=== PATIENT | female | born 2000 | race Caucasian/White ===

== ENCOUNTER → 2021-11-29 | Outpatient (CLI) | payer BC ==
--- NOTE | 2021-11-29 16:19 | Diagnostic Imaging Report ---
INDICATION: Abdominal pain and cramping. FINDINGS: Supine and upright abdominal radiographs show a normal gas pattern and normal fecal load. No suspicious calcification. IMPRESSION: Unremarkable abdominal radiographic series. Dictated by: Dictated on workstation # [id number]
== END ==
LOC: RAD FS 10:50
PROVIDERS: ATTEND Nurse Practitioner Family
DX: R10.9 Unspecified abdominal pain (principal); R25.2 Cramp and spasm; R11.0 Nausea
CPT/HCPCS: 74019

== ENCOUNTER → 2022-08-31 | Outpatient (CLI) | payer BC ==
--- NOTE | 2022-08-31 15:22 | Diagnostic Imaging Report ---
INDICATION: survey. TECHNIQUE: Multiple Real-time grayscale images were obtained over the gravid uterus. COMPARISON: None. FINDINGS: There is a single live fetus in a transverse presentation with the head to the maternal right. The heart rate was recorded at 150 BPM. The placenta is posterior. There appears to be a complete placenta previa. The amniotic fluid index is 13.5 cm. The cervical length is 4.4 cm. The survey shows kidneys, bladder, and stomach to be unremarkable. The brain is unremarkable. There is a four-chamber heart. There is a three-vessel cord with normal insertion. The spine is unremarkable. Biometrical measurements are as follows: Biparietal 5.10 cm, age 21 weeks 4 days. Head circumference 18.46 cm, age 20 weeks 6 days. Abdominal circumference 16.66 cm, age 21 weeks 5 days. Femur length 3.59 cm, age 21 weeks 3 days. Sonographic estimate age: 21 weeks 3 days. Sonographic estimated date of delivery: 01/08/2023. Estimated Weight: 426 gm (+/- 63 gm). LMP percentile: 93%. heart rate: 150 beats per minute. number: 1 of 1. IMPRESSION: Single live IUP of 21 weeks 3 days gestational age. The estimated date of confinement sonographically is 01/08/2023. Note is made of complete placenta previa. Dictated by: Dictated on workstation # [id number]
== END ==
LOC: RAD 12:47
PROVIDERS: ATTEND Nurse Practitioner Women's Health
DX: Z34.92 Encounter for supervision of normal pregnancy, unspecified, second trimester (principal); Z3A.21 21 weeks gestation of pregnancy
CPT/HCPCS: 76805

== ENCOUNTER → 2022-12-07 | Outpatient (CLI) | payer BC | LOC: LABNPT 11:24 | PROVIDERS: ATTEND Nurse Practitioner Women's Health | DX: O13.9 Gestational [pregnancy-induced] hypertension without significant proteinuria, unspecified trimester (principal); Z3A.00 Weeks of gestation of pregnancy not specified | CPT/HCPCS: 82570; 84156 ==

== ENCOUNTER → 2022-12-28 | Outpatient (CLI) | payer BC ==
[~2022-12-28] MED LIST: ACHD5005 PO; DOCU100C37 PO; FERR-74 PO; IBUP-844 PO; PREN-102 PO; SIME80TA16 PO
== END ==
LOC: LABNPT 11:37
PROVIDERS: ATTEND Obstetrics & Gynecology
DX: O13.9 Gestational [pregnancy-induced] hypertension without significant proteinuria, unspecified trimester (principal); Z3A.00 Weeks of gestation of pregnancy not specified
CPT/HCPCS: 82570; 84156

== ENCOUNTER 2022-12-30 20:16 | Inpatient (IN) | payer BC ==
[~2022-12-30] VITALS: Ht 167 cm; Wt 75.6 kg
[2022-12-30] VITALS (12 sets, daily range): BP systolic 118–154; BP diastolic 33–94
[2022-12-30 20:56] LABS: BACTERIA,URINE LARGE /HPF; BILIRUBIN,URINE 1+ (NEGATIVE); CLARITY,URINE CLOUDY; COLOR,URINE YELLOW; GLUCOSE, URINE (UA) NEGATIVE (NEGATIVE); KETONES,URINE 2+ (NEGATIVE); LEUKOCYTE ESTERASE ,URINE NEGATIVE (NEGATIVE); NITRITE,URINE NEGATIVE (NEGATIVE); PROTEIN,URINE 3+ (NEGATIVE)
[2022-12-30 21:26] LABS: BASOPHILS % (AUTO) 0 % (0-10); EOSINOPHILS # (AUTO) 0.1 10^3/uL (0.0-0.3); EOSINOPHILS % (AUTO) 1 % (0-10); HEMATOCRIT 35 % (35-52); HEMOGLOBIN 12.1 g/dL (11.5-16.0); LYMPHOCYTES # (AUTO) 0.9 10^3/uL (1.0-4.0); LYMPHOCYTES % (AUTO) 7 % (12-44); MEAN CORPUSCULAR HEMOGLOBIN 31 pg (25-34); MEAN CORPUSCULAR HGB CONC 35 g/dL (32-36); MEAN CORPUSCULAR VOLUME 89 fL (80-99); MEAN PLATELET VOLUME 12.2 fL (9.0-12.2); MONOCYTES # (AUTO) 0.9 10^3/uL (0.0-1.0); MONOCYTES % (AUTO) 7 % (0-12); NEUTROPHILS # (AUTO) 11.1 10^3/uL (1.8-7.8); NEUTROPHILS % (AUTO) 85 % (42-75); PLATELET COUNT 91 10^3/uL (130-400)
[2022-12-30 21:44] LABS: ALBUMIN 2.9 GM/DL (3.2-4.5)
[2022-12-30 21:45] LABS: POTASSIUM 3.7 MMOL/L (3.6-5.0)
[2022-12-30 21:46] LABS: CALCIUM 8.2 MG/DL (8.5-10.1)
[2022-12-30 21:47] LABS: TOTAL PROTEIN 5.7 GM/DL (6.4-8.2)
[2022-12-30 21:49] LABS: BILIRUBIN,TOTAL 0.7 MG/DL (0.1-1.0)
[2022-12-30 21:51] LABS: CREATININE SERUM 0.65 MG/DL (0.60-1.30)
[2022-12-30 22:03] LABS: EOSINOPHILS % (MANUAL) 4 %; LYMPHOCYTES % (MANUAL) 10 %; MONOCYTES % (MANUAL) 3 %; NEUTROPHILS % (MANUAL) 83 %; RBC MORPH NORMAL
[2022-12-30] MEDS ORDERED: LACTATED RINGERS 1,000 ML 500 ML IV PRN (22:15)
[2022-12-30] MEDS ORDERED: MAGNESIUM 4 GM/100 ML IVPB 100 ML IV SCH (22:15)
[2022-12-30] MEDS ORDERED: CALCIUM GLUCONATE 10% 4.65 MEQ/10 ML VIAL IV SCH (22:15)
[2022-12-30] MEDS ORDERED: MINERAL OIL 30 ML UDC TOP PRN (22:15)
[2022-12-30] MEDS ORDERED: D5 LR 1,000 ML IV SOLN 1,000 ML IV ONE (22:24)
[2022-12-30] MEDS: D5 LR 1,000 ML IV SOLN 1,000 ML IV SCH (22:51)
[2022-12-30] MEDS: MAGNESIUM SULFATE DRIP 500 ML IV SCH (23:18)
[2022-12-30] MEDS ORDERED: LACTATED RINGERS 1,000 ML 1,000 ML IV ONE (23:30)
--- NOTE | 2022-12-30 23:47 | History & Physical-OB ---
OB - Chief Complaint & HPI Date/Time Date of Admission: Date of Admission: Dec 30, 2022 at 21:57 Date seen by a Provider: Dec 30, 2022 Time Seen by a Provider: 23:00 Chief Complaint/History OB-Reason for Admission/Chief: Obstetrical Complication (Preeclampsia with severe features) Hx : 1 Hx Para: 0 Expected Date of Delivery: Jan 15, 2023 Gestational Age in Weeks: 37 Gestational Age in Days: 5 Other reason for admission: Preeclampsia with severe features 37 5/7 weeks Latent labor Allergies and Home Medications Allergies Coded Allergies: No Known Drug Allergies (Unverified , 12/30/22) Patient Home Medication List Home Medication List Reviewed: Yes OB - History Hx of Present Care: Yes Obstetrical Complications: Pre-eclampsia Medical Complications: None Other Concerns: HPI: Patient is a EDC 01/15/23 based on a 10 week US CRL done 06/15/22 giving her an EDC of 01/15/23 making her 37 5/7 weeks today admitted with diagnosis of preeclampsia with severe features based on mildly elevated BP, urine P/C ratio of 0.42 from 12/28/22 and elevated transaminases (AST/ALT 123/88) and low PLT (91K) today. Patient seen in the office on Saturday12/28/22 at which time her CMP was normal and PLT 114K. Patient was scheduled to come back to clinic tomorrow AM. She presented to L&D this evening due to contractions q3-4 minutes mild- moderate in intensity and mildly elevated BP at home. Labs as above. Patient admitted for delivery. Cervical exam by me at 2308 hours 2/70/- 3/VTX/BOWI/posterior/moderately soft. Category I FHR tracing with baseline 140 bpm, moderate variability, +accels, no decels. GBS Negative. Patient ROS negative. PNC: Marginal previa early in resolved PMH: Neg PSH: Neg SHx: Negative for smoking/ETOH/RX abuse/STI/Genital HSV Meds: PNV NKDA LABS: PREECLAMPTIC LABS ABOVE PAP 2021 WNL MBT A POS PNAS NEG VDRL NR HBSAG NR HIV NR GC/CT NEG X 2 RUBELLA IMMUNE 1 HR GLUCOLA 125 GBS NEG MSAFP TESTING NEGATIVE PER PATIENT 2ND TRIMESTER US REPORT NOT AVAILABLE...PATIENT STATES NORMAL REVIEW OF SYSTEMS NEGATIVE FOR HEENT, CV, RESPIRATORY, GI/, MS/NM, SKIN, ENDOCRINE Obstetrical History Hx : 1 Hx Para: 0 Hx Total # of Abortions (Spona: 0 Patient Past Medical History See HPI above. Social History/Family History Alcohol Use: Denies Use Recreational Drug Use: No Immunizations Influenza Vaccine Up-to-Date: No; Not Current OB - Admission Exam Physical Exam Vitals: Vital Signs 12/30/22 12/30/22 20:44 21:55 Temp 37.0 Pulse 75 Resp 18 B/P (MAP) 153/94 Pulse Ox 99 O2 Delivery Room Air HEENT: Eyes non-injected Heart: Rhythm Normal Lungs: Clear Abdomen: Soft Extremities: Normal Reflexes: Normal Membranes: Intact Heart Rate: 140's Accelerations: Accelerations Present Decelerations: No Decelerations Mcfp Variability: Average (6-25) Contractions on Admission: < 5 Minutes Apart Labs Laboratory Tests Test 12/30/22 20:39 12/30/22 21:19 12/30/22 22:14 Range/Units Urine Color YELLOW Urine Clarity CLOUDY Urine pH 6.0 5-9 Urine Specific [place] >=1.030 1.016-1.022 Urine Protein 3+ H NEGATIVE Urine Glucose (UA) NEGATIVE NEGATIVE Urine Ketones 2+ H NEGATIVE Urine Nitrite NEGATIVE NEGATIVE Urine Bilirubin 1+ H NEGATIVE Urine Urobilinogen 1.0 < = 1.0 MG/DL Urine Leukocyte Esterase NEGATIVE NEGATIVE Urine RBC (Auto) 3+ H NEGATIVE Urine RBC 10-25 H /HPF Urine WBC 5-10 H /HPF Urine Squamous Epithelial Cells 10-25 H /HPF Urine Crystals NONE /LPF Urine Bacteria LARGE H /HPF Urine Casts NONE /LPF Urine Mucus LARGE H /LPF Urine Culture Indicated NO White Blood Count 13.0 H 4.3-11.0 10^3/uL Red Blood Count 3.90 3.80-5.11 10^6/uL Hemoglobin 12.1 11.5-16.0 g/dL Hematocrit 35 35-52 % Mean Corpuscular Volume 89 80-99 fL Mean Corpuscular Hemoglobin 31 25-34 pg Mean Corpuscular Hemoglobin Concent 35 32-36 g/dL Red Cell Distribution Width 14.9 H 10.0-14.5 % Platelet Count 91 L 130-400 10^3/uL Mean Platelet Volume 12.2 9.0-12.2 fL Immature Granulocyte % (Auto) 1 % Neutrophils (%) (Auto) 85 H 42-75 % Lymphocytes (%) (Auto) 7 L 12-44 % Monocytes (%) (Auto) 7 0-12 % Eosinophils (%) (Auto) 1 0-10 % Basophils (%) (Auto) 0 0-10 % Neutrophils # (Auto) 11.1 H 1.8-7.8 10^3/uL Lymphocytes # (Auto) 0.9 L 1.0-4.0 10^3/uL Monocytes # (Auto) 0.9 0.0-1.0 10^3/uL Eosinophils # (Auto) 0.1 0.0-0.3 10^3/uL Basophils # (Auto) 0.0 0.0-0.1 10^3/uL Immature Granulocyte # (Auto) 0.1 0.0-0.1 10^3/uL Neutrophils % (Manual) 83 % Lymphocytes % (Manual) 10 % Monocytes % (Manual) 3 % Eosinophils % (Manual) 4 % Platelet Estimate CONSISTENT W/ COUNT Percent Immature Platelet Fraction 12.5 H 0.0-7.6 % Blood Morphology Comment NORMAL Sodium Level 136 135-145 MMOL/L Potassium Level 3.7 3.6-5.0 MMOL/L Chloride Level 107 98-107 MMOL/L Carbon Dioxide Level 20 L 21-32 MMOL/L Anion Gap 9 5-14 MMOL/L Blood Urea Nitrogen 9 7-18 MG/DL Creatinine 0.65 0.60-1.30 MG/DL Estimat Glomerular Filtration Rate 126 BUN/Creatinine Ratio 14 Glucose Level 83 70-105 MG/DL Calcium Level 8.2 L 8.5-10.1 MG/DL Corrected Calcium 9.1 8.5-10.1 MG/DL Total Bilirubin 0.7 0.1-1.0 MG/DL Aspartate Amino Transf (AST/SGOT) 123 H 5-34 U/L Alanine Aminotransferase (ALT/SGPT) 88 H 0-55 U/L Alkaline Phosphatase 119 40-136 U/L Total Protein 5.7 L 6.4-8.2 GM/DL Albumin 2.9 L 3.2-4.5 GM/DL Syphilis Total Antibody Negative Negative OB - Assessment/Plan/Diagnosis Assessment Assessment: other (37 5/7, SEVERE PREECLAMPSIA, LATENT OR EARLY LABOR ADMIT FOR DELIVERY) Admission Dx 37 5/7 WEEKS PREECLAMPSIA WITH SEVERE FEATURES EARLY LABOR Admission Status: Inpatient Order (span 2 midnights) Reason for Inpatient Admission: Patient admitted for indicated medical delivery for preeclampsia with severe features in early labor. 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 # Patient requesting epidural...Anethesia service OK with epidural at PLT of 91K...getting IV bolus for epidural now # Plan is to SROM after epidural placed observe for an hour and if needed, then start Pitocin augmentation if needed. # Repeat CBC and CMP at 0500 # BP in normal to mildly elevated at this time...IV anti-hypertensive meds prn severe range BPs # GBS Negative # Category I FHR tracing with contractions q 3 minutes... Leopolds 7 lbs 6 onz.... adequate pelvis # Patient and spouse understand condition and voiced understanding...no questions or concerns at this time...Patient's RN in room during patient encounter. # Will sign out patient to Dr. Johnson, patient's regular OB provider, when he comes sound engineer audio control at 0700. CARMEL GARCIA DO Dec 30, 2022 23:47
[2022-12-30] MEDS ORDERED: fentaNYL INJECTION 100 MCG/2 ML VIAL ONE (23:48)
[2022-12-30] MEDS ORDERED: BUPIVACAINE 0.25% 10 ML VIAL ONE (23:48)
[2022-12-30] MEDS ORDERED: fentaNYL 2 mcg/ml BUPIVA 0.125 100 ML ONE (23:49)
[2022-12-31] VITALS (61 sets, daily range): BP systolic 98–155; BP diastolic 56–103
[2022-12-31] MEDS ORDERED: fentaNYL 2 mcg/ml BUPIVA 0.125 100 ML EPI SCH (00:30)
[2022-12-31] MEDS ORDERED: ONDANSETRON INJECTION 4 MG/2 ML (SDV) IV PRN (00:30)
[2022-12-31] MEDS ORDERED: fentaNYL INJECTION 100 MCG/2 ML VIAL INJ ONE (00:30)
[2022-12-31] MEDS ORDERED: NALOXONE 0.4 MG/ML 1 ML VIAL IV PRN ×2 (00:30→07:45)
[2022-12-31] MEDS ORDERED: LACTATED RINGERS 1,000 ML 1,000 ML IV ONE ×2 (00:30)
[2022-12-31] MEDS ORDERED: PREN-102 PO (00:57)
--- NOTE | 2022-12-31 01:49 | Labor Progress Note ---
Labor Progress Note Labor Progress Note Date Seen by Provider: Dec 31, 2022 Time Seen by Provider: 01:20 Subjective: Pt denies complaints. Functional epidural in place, patient has nogueira. BP 116/73. Cervical exam at 0122 hours at time of AROM clear (below) Objective: Cervix 2/70/-3... AROM clear Assessment/Plan: AROM clear at 0122 IUPC placed...unable to get IUPC zero at this time. Going to external monitor to determine frequency of contractions. Prior to epidural contractions were q3-5 minutes. will wait 1 hour after AROM, as discussed and agreed upon by patient, then initiate Pitocin augmentation to maintain regular uterine contractions q2-3 minutes. Repeat CBC and CMP at 0500 hours. Patient without questions or concerns voiced. Vitals - Labs Vital Signs - I&O Vital Signs Date Time Temp Pulse Resp B/P (MAP) Pulse Ox O2 Delivery O2 Flow Rate FiO2 12/31/22 00:40 81 16 131/77 (95) 98 Room Air 12/31/22 00:35 93 16 127/76 (93) 98 Room Air 12/31/22 00:30 106 16 126/77 (93) 98 Room Air 12/31/22 00:26 127 16 128/80 (96) 97 Room Air 12/31/22 00:22 116 16 129/84 (99) 97 Room Air 12/31/22 00:20 91 16 129/83 (98) 97 Room Air 12/31/22 00:15 97 16 126/83 (97) 97 Room Air 12/31/22 00:04 94 16 134/84 (101) 97 Room Air 12/30/22 23:49 81 16 130/68 (88) 98 Room Air 12/30/22 23:19 83 16 118/69 (85) 99 Room Air 12/30/22 23:04 86 16 128/67 (87) 97 Room Air 12/30/22 22:05 88 16 154/91 (112) 99 Room Air 12/30/22 21:55 37.0 75 18 99 Room Air 12/30/22 21:50 75 16 142/84 (103) 99 Room Air 12/30/22 21:45 85 16 137/89 (105) 97 Room Air 12/30/22 21:20 73 16 131/33 (65) 99 Room Air 12/30/22 21:05 75 16 139/93 (108) 98 Room Air 12/30/22 20:50 71 16 137/91 (106) 98 Room Air 12/30/22 20:44 36.5 78 18 153/94 97 Room Air 12/30/22 20:35 36.5 76 16 153/94 (113) 97 Room Air I & O 12/31/22 06:59 Intake Total 600 ml Balance 600 ml Labs Laboratory Tests 12/30/22 20:39: Urine Color YELLOW, Urine Clarity CLOUDY, Urine pH 6.0, Urine Specific [place] >=1.030, Urine Protein 3+H, Urine Glucose (UA) NEGATIVE, Urine Ketones 2+H, Urine Nitrite NEGATIVE, Urine Bilirubin 1+H, Urine Urobilinogen 1.0, Urine Leukocyte Esterase NEGATIVE, Urine RBC (Auto) 3+H, Urine RBC 10-25H, Urine WBC 5-10H, Urine Squamous Epithelial Cells 10-25H, Urine Crystals NONE, Urine Bacteria LARGEH, Urine Casts NONE, Urine Mucus LARGEH, Urine Culture Indicated N O 12/30/22 21:19: White Blood Count 13.0H, Red Blood Count 3.90, Hemoglobin 12.1, Hematocrit 35, Mean Corpuscular Volume 89, Mean Corpuscular Hemoglobin 31, Mean Corpuscular Hemoglobin Concent 35, Red Cell Distribution Width 14.9H, Platelet Count 91L, Mean Platelet Volume 12.2, Immature Granulocyte % (Auto) 1, Neutrophils (%) (Auto) 85H, Lymphocytes (%) (Auto) 7L, Monocytes (%) (Auto) 7, Eosinophils (%) (Auto) 1, Basophils (%) (Auto) 0, Neutrophils # (Auto) 11.1H, Lymphocytes # (Auto) 0.9L, Monocytes # (Auto) 0.9, Eosinophils # (Auto) 0.1, Basophils # (Auto) 0.0, Immature Granulocyte # (Auto) 0.1, Neutrophils % (Manual) 83, Lymphocytes % (Manual) 10, Monocytes % (Manual) 3, Eosinophils % (Manual) 4, Platelet Estimate CONSISTENT W/ COUNT, Percent Immature Platelet Fraction 12.5H, Blood Morphology Comment NORMAL, Sodium Level 136, Potassium Level 3.7, Chloride Level 107, Carbon Dioxide Level 20L, Anion Gap 9, Blood Urea Nitrogen 9, Creatinine 0.65, Estimat Glomerular Filtration Rate 126, BUN/Creatinine Ratio 14, Glucose Level 83, Calcium Level 8.2L, Corrected Calcium 9.1, Total Bilirubin 0.7, Aspartate Amino Transf (AST/SGOT) 123H, Alanine Aminotransferase (ALT/SGPT) 88H, Alkaline Phosphatase 119, Total Protein 5.7L, Albumin 2.9L 12/30/22 22:14: Syphilis Total Antibody Negative CARMEL GARCIA DO Dec 31, 2022 01:49
[2022-12-31] MEDS ORDERED: OXYTOCIN DRIP PRE-MIX 500 ML IV ONE (02:48)
[2022-12-31] MEDS ORDERED: OXYTOCIN DRIP PRE-MIX 500 ML IV SCH (03:00)
[2022-12-31] MEDS ORDERED: LACTATED RINGERS IV PRN (04:45)
[2022-12-31 05:37] LABS: BASOPHILS % (AUTO) 0 % (0-10); HEMOGLOBIN 10.9 g/dL (11.5-16.0)
[2022-12-31 05:39] LABS: EOSINOPHILS # (AUTO) 0.1 10^3/uL (0.0-0.3); EOSINOPHILS % (AUTO) 1 % (0-10); HEMATOCRIT 32 % (35-52); LYMPHOCYTES # (AUTO) 0.7 10^3/uL (1.0-4.0); LYMPHOCYTES % (AUTO) 7 % (12-44); MEAN CORPUSCULAR HEMOGLOBIN 31 pg (25-34); MEAN CORPUSCULAR HGB CONC 34 g/dL (32-36); MEAN CORPUSCULAR VOLUME 90 fL (80-99); MEAN PLATELET VOLUME 12.1 fL (9.0-12.2); MONOCYTES # (AUTO) 0.6 10^3/uL (0.0-1.0); MONOCYTES % (AUTO) 6 % (0-12); NEUTROPHILS # (AUTO) 8.6 10^3/uL (1.8-7.8); NEUTROPHILS % (AUTO) 86 % (42-75)
[2022-12-31 05:59] LABS: ALBUMIN 2.6 GM/DL (3.2-4.5); BILIRUBIN,TOTAL 0.6 MG/DL (0.1-1.0); CALCIUM 7.6 MG/DL (8.5-10.1); CREATININE SERUM 0.6 MG/DL (0.60-1.30); POTASSIUM 3.7 MMOL/L (3.6-5.0)
[2022-12-31] MEDS ORDERED: CATHETER FLUSH 10 ML SYR IV SCH (06:00)
[2022-12-31 06:46] LABS: PLATELET COUNT 65 10^3/uL (130-400)
--- NOTE | 2022-12-31 07:14 | Labor Progress Note ---
Labor Progress Note Labor Progress Note Date Seen by Provider: Dec 31, 2022 Time Seen by Provider: 06:10 Subjective: Patient comfortable in bed. On 6 mIU Pitocin with contractions q 3 minutes. Cervical exam at approx. 0610 is 4/80/-2 by my exam. FHR tracing unchanged from admission still Category I FHR tracing, baseline 145, moderate variability, +accels, no decels. Urine output borderline 1t 30 mL/HR believed in part to be due to dehydration (urine concentrated on admission by SG) for which patient has received two small boluses of LR of 250 ML each in addition to 500 ML prior to epidural. PLT at around 0500 is 65K with AST/ALT now 158/111. We have one unit of platelets here at hospital if needed to transfuse platelets. Objective: As above. Assessment/Plan: # @ 37 5/7 weeks with preeclampsia with severe features, entering active labor with Pitocin augmentation and epidural. # PLT now 65K with AST/ALT 158/111 # BP normal range, on IV Magnesium Sulfate 1 gm per hour # Following UO hourly and giving small IV boluses to maintain 30 ML or more. # Case discussed with patient regarding risks of bleeding with PLT continuing to drop, risks with attempted vaginal delivery vs now vs later. Her OB Dr. Johnson is on duty at 0700 (he and I spoke at around 0652 about this case). Patient would like to hear what Dr. Johnson would recommend. He is now restoration officer for the patient and told me he will come in to speak with her in about 15- 30 minutes. I will inform patient about this. This patient has been signed out to Dr. Johnson who has now assumed care. OB nurses are aware. Vitals - Labs Vital Signs - I&O Vital Signs Date Time Temp Pulse Resp B/P (MAP) Pulse Ox O2 Delivery O2 Flow Rate FiO2 12/31/22 06:15 78 16 124/80 (95) 96 Room Air 12/31/22 06:00 73 16 120/74 (89) 97 Room Air 12/31/22 05:45 71 16 116/74 (88) 95 Room Air 12/31/22 05:30 70 16 114/75 (88) 96 Room Air 12/31/22 05:15 70 16 112/67 (82) 95 Room Air 12/31/22 05:00 74 16 115/65 (82) 95 Room Air 12/31/22 04:45 79 16 98/57 (71) 96 Room Air 12/31/22 04:30 77 16 101/56 (71) 96 Room Air 12/31/22 04:15 80 16 115/65 (82) 96 Room Air 12/31/22 04:00 81 16 114/67 (83) 96 Room Air 12/31/22 03:45 79 16 114/68 (83) 96 Room Air 12/31/22 03:30 85 16 118/69 (85) 97 Room Air 12/31/22 03:15 83 16 118/70 (86) 98 Room Air 12/31/22 03:00 95 16 111/64 (80) 96 Room Air 12/31/22 02:45 101 16 109/63 (78) 95 Room Air 12/31/22 02:30 96 16 109/64 (79) 96 Room Air 12/31/22 02:15 101 16 110/68 (82) 96 Room Air 12/31/22 02:00 83 16 112/69 (83) 97 Room Air 12/31/22 01:45 92 16 108/70 (83) 96 Room Air 12/31/22 01:30 83 16 116/73 (87) 97 Room Air 12/31/22 01:15 93 16 119/75 (90) 96 Room Air 12/31/22 01:00 90 16 127/76 (93) 96 Room Air 12/31/22 00:40 81 16 131/77 (95) 98 Room Air 12/31/22 00:35 93 16 127/76 (93) 98 Room Air 12/31/22 00:30 106 16 126/77 (93) 98 Room Air 12/31/22 00:26 127 16 128/80 (96) 97 Room Air 12/31/22 00:22 116 16 129/84 (99) 97 Room Air 12/31/22 00:20 91 16 129/83 (98) 97 Room Air 12/31/22 00:15 97 16 126/83 (97) 97 Room Air 12/31/22 00:04 94 16 134/84 (101) 97 Room Air 12/30/22 23:49 81 16 130/68 (88) 98 Room Air 12/30/22 23:19 83 16 118/69 (85) 99 Room Air 12/30/22 23:04 86 16 128/67 (87) 97 Room Air 12/30/22 22:05 88 16 154/91 (112) 99 Room Air 12/30/22 21:55 37.0 75 18 99 Room Air 12/30/22 21:50 75 16 142/84 (103) 99 Room Air 12/30/22 21:45 85 16 137/89 (105) 97 Room Air 12/30/22 21:20 73 16 131/33 (65) 99 Room Air 12/30/22 21:05 75 16 139/93 (108) 98 Room Air 12/30/22 20:50 71 16 137/91 (106) 98 Room Air 12/30/22 20:44 36.5 78 18 153/94 97 Room Air 12/30/22 20:35 36.5 76 16 153/94 (113) 97 Room Air I & O 12/31/22 07:00 Intake Total 600 ml Balance 600 ml Labs Laboratory Tests 12/30/22 20:39: Urine Color YELLOW, Urine Clarity CLOUDY, Urine pH 6.0, Urine Specific [place] >=1.030, Urine Protein 3+H, Urine Glucose (UA) NEGATIVE, Urine Ketones 2+H, Urine Nitrite NEGATIVE, Urine Bilirubin 1+H, Urine Urobilinogen 1.0, Urine Leukocyte Esterase NEGATIVE, Urine RBC (Auto) 3+H, Urine RBC 10-25H, Urine WBC 5-10H, Urine Squamous Epithelial Cells 10-25H, Urine Crystals NONE, Urine Bacteria LARGEH, Urine Casts NONE, Urine Mucus LARGEH, Urine Culture Indicated NO 12/30/22 21:19: White Blood Count 13.0H, Red Blood Count 3.90, Hemoglobin 12.1, Hematocrit 35, Mean Corpuscular Volume 89, Mean Corpuscular Hemoglobin 31, Mean Corpuscular Hemoglobin Concent 35, Red Cell Distribution Width 14.9H, Platelet Count 91L, Mean Platelet Volume 12.2, Immature Granulocyte % (Auto) 1, Neutrophils (%) (Auto) 85H, Lymphocytes (%) (Auto) 7L, Monocytes (%) (Auto) 7, Eosinophils (%) (Auto) 1, Basophils (%) (Auto) 0, Neutrophils # (Auto) 11.1H, Lymphocytes # (Auto) 0.9L, Monocytes # (Auto) 0.9, Eosinophils # (Auto) 0.1, Basophils # (Auto) 0.0, Immature Granulocyte # (Auto) 0.1, Neutrophils % (Manual) 83, Lymphocytes % (Manual) 10, Monocytes % (Manual) 3, Eosinophils % (Manual) 4, Platelet Estimate CONSISTENT W/ COUNT, Percent Immature Platelet Fraction 12.5H, Blood Morphology Comment NORMAL, Sodium Level 136, Potassium Level 3.7, Chloride Level 107, Carbon Dioxide Level 20L, Anion Gap 9, Blood Urea Nitrogen 9, Creatinine 0.65, Estimat Glomerular Filtration Rate 126, BUN/Creatinine Ratio 14, Glucose Level 83, Calcium Level 8.2L, Corrected Calcium 9.1, Total Bilirubin 0.7, Aspartate Amino Transf (AST/SGOT) 123H, Alanine Aminotransferase (ALT/SGPT) 88H, Alkaline Phosphatase 119, Total Protein 5.7L, Albumin 2.9L 12/30/22 22:14: Syphilis Total Antibody Negative 12/31/22 05:27: White Blood Count 10.0, Red Blood Count 3.54L, Hemoglobin 10.9L, Hematocrit 32L, Mean Corpuscular Volume 90, Mean Corpuscular Hemoglobin 31, Mean Corpuscular Hemoglobin Concent 34, Red Cell Distribution Width 15.2H, Platelet Count 65L, Mean Platelet Volume 12.1, Immature Granulocyte % (Auto) 0, Neutrophils (%) (Auto) 86H, Lymphocytes (%) (Auto) 7L, Monocytes (%) (Auto) 6, Eosinophils (%) (Auto) 1, Basophils (%) (Auto) 0, Neutrophils # (Auto) 8.6H, Lymphocytes # (Auto) 0.7L, Monocytes # (Auto) 0.6, Eosinophils # (Auto) 0.1, Basophils # (Auto) 0.0, Immature Granulocyte # (Auto) 0.0, Percent Immature Platelet Fraction 10.5H, Sodium Level 134L, Potassium Level 3.7, Chloride Level 106, Carbon Dioxide Level 20L, Anion Gap 8, Blood Urea Nitrogen 8, Creatinine 0.60, Estimat Glomerular Filtration Rate 128, BUN/Creatinine Ratio 13, Glucose Level 211H, Calcium Level 7.6L, Corrected Calcium 8.7, Total Bilirubin 0.6, Aspartate Amino Transf (AST/SGOT) 158H, Alanine Aminotransferase (ALT/SGPT) 111H, Alkaline Phosphatase 105, Total Protein 5.0L, Albumin 2.6L CARMEL GARCIA DO Dec 31, 2022 07:14
[2022-12-31] MEDS ORDERED: fentaNYL INJECTION 100 MCG/2 ML VIAL ONE ×2 (07:19→08:57)
[2022-12-31] MEDS ORDERED: METOCLOPRAMIDE INJ 10 MG/2 ML ONE (07:25)
[2022-12-31] MEDS ORDERED: CITRIC ACID/SODIUM CITRATE ORAL SOLN 30 ML ONE (07:25)
[2022-12-31] MEDS ORDERED: FAMOTIDINE INJ 20MG/2ML VIAL ONE (07:26)
[2022-12-31] MEDS ORDERED: ceFAZolin INJECTION 2,000 MG in NS (IVPB) 50 ML 50 ML IV ONE ×2 (07:30→11:00)
[2022-12-31] MEDS ORDERED: LIDOCAINE PF 2% 5 ML VIAL ONE (07:30)
[2022-12-31] MEDS ORDERED: dexAMETHasone INJ 4 MG/ML SDV IM SCH (07:30)
[2022-12-31] MEDS ORDERED: BUPIVACAINE 0.5% 30 ML VIAL ONE (07:30)
[2022-12-31] MEDS ORDERED: dexAMETHasone INJ 10 MG/ML 1 ML VIAL IM SCH (07:30)
[2022-12-31] MEDS ORDERED: AZITHROMYCIN INJECTION 500 MG in NS (IVPB) 250 ML 250 ML IV ONE ×2 (07:30→11:00)
[2022-12-31] MEDS ORDERED: NS (IVPB) 50 ML 50 ML ONE (07:35)
[2022-12-31] MEDS ORDERED: ceFAZolin INJECTION 2,000 MG ONE (07:35)
[2022-12-31] MEDS ORDERED: AZITHROMYCIN INJECTION 500 MG VIAL ONE (07:35)
[2022-12-31] MEDS ORDERED: NS (IVPB) 250 ML 250 ML ONE (07:36)
--- NOTE | 2022-12-31 07:38 | Progress Note ---
Standard Progress Note Progress Notes/Assess & Plan Date Seen by a Provider: Dec 31, 2022 Time Seen by a Provider: 07:33 Progress/Assessment & Plan Patient situation called to me at sign out by Dr. Reynoso, please see my operative report for complete details to situation. Patient found in Severe PreE HELLP and remote from delivery with plts in the 60ks. Discussed with patient concerns with being remote from delivery and plts falling and only having one unit of platelets inhouse. Risk of surgery reviewed, all questions answered, and consent obtained to go forward with emergent PLTCS. TEVIN DOMINGUEZ DO Dec 31, 2022 07:38
[2022-12-31] MEDS ORDERED: Tetanus/Diphtheria/Pertussis (Acell) ADULT Vaccine 0.5 ML IM SCH (07:45)
[2022-12-31] MEDS ORDERED: MEASLES, MUMPS, RUBELLA VACCINE (MMR) SC SCH (07:45)
[2022-12-31] MEDS ORDERED: ONDANSETRON INJECTION 4 MG/2 ML (SDV) IVP PRN (07:45)
[2022-12-31] MEDS ORDERED: HYDROmorphone INJECTION 2 MG/ML VIAL IV PRN (07:45)
[2022-12-31] MEDS ORDERED: CARBOPROST 250 MCG/ML 1 ML AMPULE IM ONE (07:56)
[2022-12-31] MEDS ORDERED: MIDAZOLAM INJ 2 MG/2 ML VIAL ONE (08:06)
[2022-12-31] MEDS ORDERED: ONDANSETRON INJECTION 4 MG/2 ML (SDV) ONE (08:18)
[2022-12-31] MEDS ORDERED: OXYTOCIN DRIP PRE-MIX 1,000 ML IV ONE (08:37)
[2022-12-31 08:43] LABS: BASOPHILS % (AUTO) 0 % (0-10); EOSINOPHILS # (AUTO) 0.1 10^3/uL (0.0-0.3); EOSINOPHILS % (AUTO) 1 % (0-10); HEMATOCRIT 32 % (35-52); HEMOGLOBIN 10.9 g/dL (11.5-16.0); LYMPHOCYTES # (AUTO) 0.5 10^3/uL (1.0-4.0); LYMPHOCYTES % (AUTO) 5 % (12-44); MEAN CORPUSCULAR HEMOGLOBIN 31 pg (25-34); MEAN CORPUSCULAR HGB CONC 35 g/dL (32-36); MEAN CORPUSCULAR VOLUME 89 fL (80-99); MEAN PLATELET VOLUME 11.7 fL (9.0-12.2); MONOCYTES # (AUTO) 0.6 10^3/uL (0.0-1.0); MONOCYTES % (AUTO) 5 % (0-12); NEUTROPHILS # (AUTO) 10.3 10^3/uL (1.8-7.8); NEUTROPHILS % (AUTO) 88 % (42-75); WHITE BLOOD COUNT 11.6 10^3/uL (4.3-11.0)
[2022-12-31 08:46] LABS: PLATELET COUNT 64 10^3/uL (130-400)
[2022-12-31] MEDS ORDERED: fentaNYL INJECTION 100 MCG/2 ML VIAL IVP ONE (09:00)
[2022-12-31 09:05] LABS: ALBUMIN 2.5 GM/DL (3.2-4.5); BILIRUBIN,TOTAL 0.5 MG/DL (0.1-1.0); CALCIUM 7.1 MG/DL (8.5-10.1); CREATININE SERUM 0.57 MG/DL (0.60-1.30); POTASSIUM 3.5 MMOL/L (3.6-5.0); TOTAL PROTEIN 4.7 GM/DL (6.4-8.2)
[2022-12-31] MEDS: dexAMETHasone INJ 10 MG/ML 1 ML VIAL IM SCH ×2 (09:05→21:08)
[2022-12-31] MEDS: OXYTOCIN DRIP PRE-MIX 500 ML IV SCH ×2 (09:33→12:57)
[2022-12-31] MEDS ORDERED: TRANEXAMIC ACID 100 MG/ML 10 ML INJECTION IV ONE (10:35)
[2022-12-31 12:09] LABS: BASOPHILS % (AUTO) 0 % (0-10); EOSINOPHILS % (AUTO) 0 % (0-10); HEMATOCRIT 31 % (35-52); HEMOGLOBIN 10.9 g/dL (11.5-16.0); LYMPHOCYTES # (AUTO) 0.4 10^3/uL (1.0-4.0); LYMPHOCYTES % (AUTO) 2 % (12-44); MEAN CORPUSCULAR HEMOGLOBIN 31 pg (25-34); MEAN CORPUSCULAR HGB CONC 35 g/dL (32-36); MEAN CORPUSCULAR VOLUME 89 fL (80-99); MEAN PLATELET VOLUME 12.2 fL (9.0-12.2); MONOCYTES # (AUTO) 0.6 10^3/uL (0.0-1.0); MONOCYTES % (AUTO) 3 % (0-12); NEUTROPHILS # (AUTO) 17.1 10^3/uL (1.8-7.8); NEUTROPHILS % (AUTO) 94 % (42-75); WHITE BLOOD COUNT 18.2 10^3/uL (4.3-11.0)
[2022-12-31 12:10] LABS: PLATELET COUNT 80 10^3/uL (130-400)
[2022-12-31 12:15] LABS: ALBUMIN 2.5 GM/DL (3.2-4.5); POTASSIUM 4.2 MMOL/L (3.6-5.0)
[2022-12-31 12:17] LABS: TOTAL PROTEIN 4.7 GM/DL (6.4-8.2)
[2022-12-31 12:19] LABS: INR 1.1 (0.8-1.4); PROTHROMBIN TIME PATIENT 14.3 SEC (12.2-14.7)
[2022-12-31 12:21] LABS: CREATININE SERUM 0.57 MG/DL (0.60-1.30)
[2022-12-31 12:24] LABS: URIC ACID 4.5 MG/DL (2.6-7.2)
[2022-12-31 12:29] LABS: FIBRIN DEGRADATION PRODUCTS 6.93 UG/ML (0.00-0.49)
[2022-12-31 12:46] LABS: BAND NEUTROPHILS 2 %; LYMPHOCYTES % (MANUAL) 3 %; MONOCYTES % (MANUAL) 2 %; NEUTROPHILS % (MANUAL) 93 %
[2022-12-31 12:49] LABS: ANISOCYTOSIS SLIGHT
[2022-12-31] MEDS: METOCLOPRAMIDE 10 MG TABLET PO SCH ×2 (12:57→20:04)
--- NOTE | 2022-12-31 14:13 | OPERATIVE REPORT ---
DATE OF SERVICE: 12/30/2022 POSTOPERATIVE DIAGNOSES: 1. A 22-year-old at 38 weeks' gestation. 2. Severe preeclampsia. 3. HELLP syndrome. 4. Remote from delivery. POSTOPERATIVE DIAGNOSES: 1. A 22-year-old at 38 weeks' gestation. 2. Severe preeclampsia. 3. HELLP syndrome. 4. Remote from delivery. PROCEDURE: Primary low-transverse section. SURGEON: Robb Dominguez DO SCABBLER: Dr. Steffany Chappell, who was necessary for manipulation and retraction throughout the procedure. ANESTHESIA: Epidural, which was bolused. ESTIMATED BLOOD LOSS: 1000 mL. URINE OUTPUT: 50 mL clear at the end of the procedure. FLUIDS: 1100 mL lactated Ringer's solution. FINDINGS: A live male weighing 7 pounds 14 ounces, Apgars of 8 and 9. Grossly normal appearing uterus, bilateral fallopian tubes and ovaries. SPECIMEN SENT: Placenta. INDICATIONS FOR PROCEDURE: This 22-year-old female was for early labor signs last night. After her admission, it was noted on her labs that her platelets were low. She had an elevated protein/creatinine ratio on Saturday afternoon in the office and was planned for delivery this coming week, so she was kept and admitted overnight by the covering physician, Dr. Reynoso. At admission, her platelet values were found to be 90,000 and she had slightly elevated liver enzymes. She was started on magnesium infusion for seizure prophylaxis and underlying diagnosis of preeclampsia. Her blood pressures remained fairly well-controlled, no severe elevations, however. Repeating her platelets this morning at 5:30, we had a drop down to 65,000. Due to concerns of this continuing to fall, worsening signs of severe preeclampsia, we discussed with the patient proceeding with urgent delivery. Her liver enzymes are also coming up and elevating as well. I discussed with the patient. She had progressed to 4 cm, however, still had quite a bit of labor to go through. Due to this, we discussed going through primary . Risks of procedure were discussed with the patient in detail including risk of bleeding, infection, damage to surrounding structures including but not limited to bowel, bladder, ureter, kidneys, possible need for re-operation, postoperative complications that may occur, recovery timeframe, risk from anesthesia and even . We also discussed the risk of ongoing management of labor and she was agreeable to proceed with . After all of her questions were answered, consent was obtained. The patient was taken to the operating room. OPERATIVE DESCRIPTION IN DETAIL: Once in the operating room, epidural analgesia was bolused and found to be adequate. She was placed in the supine position with leftward tilt, prepped and draped in normal sterile fashion. A timeout was performed. Anesthesia was tested. I then make a Pfannenstiel skin incision with a knife and carried to the underlying fascia using Bovie cautery. The fascial incision was extended laterally using Bovie cautery. The superior aspect of fascial incision was then grasped with Zaria clamps, tented up and dissected off the underlying rectus muscles. The inferior aspect of the fascial incision was then grasped with Zaria clamps, tented up and dissected off the underlying rectus muscles. Rectus muscles were dissected down the midline, which exposed the peritoneum, which I entered bluntly using blunt traction. An Vamshi ring retractor was placed in the peritoneal incision, which offers excellent lateral sidewall retraction. I identified the lower uterine segment, found to be thinned out. I made a low transverse incision to the vesicouterine peritoneum and bluntly dissected off the lower uterine segment, creating a bladder flap. I then proceeded my myotomy until membranes were visualized, at which point, continued the incision laterally and superiorly using blunt traction. Amniotomy was performed. In the process of doing this, clear fluid was noted. was found in vertex presentation. With gentle fundal pressure, the 's head was elevated up to the incision and was delivered through the incision. The nares and oropharynx were bulb suctioned. Anterior and posterior shoulders were delivered. The was brought to the operative field where cords were clamped and cut and was handed off to waiting nurses in attendance. Cord blood was collected. Three-vessel cord intact placenta delivered spontaneously thereafter. IV Pitocin is initiated to facilitate uterine contraction. The uterus was then exteriorized and cleared of all endometrial clots and debris. There is still some degree of bogginess noted. We have Anesthesia administer tranexamic acid 1 gram IV infusion. We also have him administer Hemabate 250 mcg IM. Uterine tone improved during the closure of the uterus. I closed the uterine hysterotomy using 0 Vicryl suture in a running locked fashion. Second layer of imbricating 0 Monocryl was placed. Excellent hemostasis was noted after doing this and there is a good degree of uterine tone appreciated on palpation at that point. I then placed the uterus back in the pelvis. Copiously irrigated the pelvis using normal saline. Once again, there was no active bleeding from any of my dissection planes. I placed Surgicel hemostatic agent over all my planes of dissection on the uterus. I removed the Vamshi retractor and then proceeded with closing the peritoneum using 3-0 Vicryl suture in a running fashion. Rectus muscles were reapproximated using 3-0 Vicryl suture in interrupted fashion. The fascia was reapproximated using 0 Vicryl suture in a running fashion. The subcutaneous tissue was reapproximated using 3-0 plain interrupted subcutaneous stitch and skin was reapproximated using 4-0 Monocryl running subcuticular. Dermabond was applied to incision, sterile dressing with adhesive white tape. The patient tolerated the procedure well and was taken to recovery in stable condition. Lap and sponge counts were correct at the end of the procedure. Instrument counts correct as well. Two grams of Ancef, 500 mg of azithromycin were given preoperatively for infection prophylaxis. Job ID: [id number] DocumentID: [id number] Dictated Date: 12/31/2022 08:43:19 Information Technology Officer Date: 12/31/2022 14:11:00 Dictated By: ROBB DOMINGUEZ DO
[2022-12-31] MEDS: MAGNESIUM SULFATE DRIP 500 ML IV SCH (16:23)
[2022-12-31] MEDS: DOCUSATE SODIUM 100 MG CAPSULE PO SCH ×2 (17:01→21:42)
[2022-12-31] MEDS ORDERED: METOCLOPRAMIDE INJ 10 MG/2 ML IV ONE (17:15)
[2022-12-31] MEDS ORDERED: FAMOTIDINE INJ 20MG/2ML VIAL IV ONE (17:15)
[2022-12-31] MEDS ORDERED: CITRIC ACID/SODIUM CITRATE ORAL SOLN 30 ML PO ONE (17:15)
[2022-12-31] MEDS ORDERED: CATHETER FLUSH 10 ML SYR IV PRN (17:15)
[2022-12-31] MEDS: D5 LR 1,000 ML IV SOLN 1,000 ML IV SCH ×2 (18:07→18:24)
[2022-12-31] MEDS: CATHETER FLUSH 10 ML SYR IV SCH ×2 (18:07→18:28)
[2022-12-31] MEDS: NS IV 500 ML 500 ML IV SCH (18:28)
[2022-12-31 20:29] LABS: EOSINOPHILS % (AUTO) 0 % (0-10); LYMPHOCYTES % (AUTO) 5 % (12-44)
[2022-12-31 20:31] LABS: BASOPHILS % (AUTO) 0 % (0-10); HEMATOCRIT 28 % (35-52); HEMOGLOBIN 9.8 g/dL (11.5-16.0); LYMPHOCYTES # (AUTO) 0.6 10^3/uL (1.0-4.0); MEAN CORPUSCULAR HEMOGLOBIN 31 pg (25-34); MEAN CORPUSCULAR HGB CONC 35 g/dL (32-36); MEAN CORPUSCULAR VOLUME 90 fL (80-99); MEAN PLATELET VOLUME 11.9 fL (9.0-12.2); MONOCYTES # (AUTO) 0.6 10^3/uL (0.0-1.0); MONOCYTES % (AUTO) 5 % (0-12); NEUTROPHILS # (AUTO) 12.1 10^3/uL (1.8-7.8); NEUTROPHILS % (AUTO) 90 % (42-75); PLATELET COUNT 68 10^3/uL (130-400); WHITE BLOOD COUNT 13.5 10^3/uL (4.3-11.0)
--- NOTE | 2022-12-31 20:44 | Progress Note ---
Standard Progress Note Progress Notes/Assess & Plan Date Seen by a Provider: Dec 31, 2022 Time Seen by a Provider: 20:15 Progress/Assessment & Plan RN requested OB to see pt BP has increased slightly and pt is c/o RUQ pain UO 117 last hour BP 154/97 H regular rhythm tachycardic Lungs Clear pt tachypneic ABD tender RUQ Uterus firm Lochia moderate EXT intact X4 SCDs on A/P OP day primary LTCS HELLP syndrome CBC CMP Mag level Continue to monitor and await lab results. LEONOR RON DO Dec 31, 2022 20:44
[2022-12-31 20:50] LABS: ALBUMIN 2.4 GM/DL (3.2-4.5); BILIRUBIN,TOTAL 0.7 MG/DL (0.1-1.0); CALCIUM 7.2 MG/DL (8.5-10.1); CREATININE SERUM 0.6 MG/DL (0.60-1.30); MAGNESIUM 4.6 MG/DL (1.6-2.4); POTASSIUM 4.3 MMOL/L (3.6-5.0); TOTAL PROTEIN 4.5 GM/DL (6.4-8.2)
[2022-12-31] MEDS ORDERED: hydrALAZINE INJECTION 20 MG/ML VIAL IV PRN (21:45)
[2023-01-01] VITALS (36 sets, daily range): BP systolic 107–144; BP diastolic 60–94
[2023-01-01] MEDS: METOCLOPRAMIDE 10 MG TABLET PO SCH ×2 (00:45→08:29)
[2023-01-01 06:18] LABS: BASOPHILS % (AUTO) 0 % (0-10); EOSINOPHILS % (AUTO) 0 % (0-10)
[2023-01-01 06:20] LABS: HEMATOCRIT 23 % (35-52); LYMPHOCYTES # (AUTO) 0.7 10^3/uL (1.0-4.0); LYMPHOCYTES % (AUTO) 5 % (12-44); MEAN CORPUSCULAR HEMOGLOBIN 31 pg (25-34); MEAN CORPUSCULAR HGB CONC 35 g/dL (32-36); MEAN CORPUSCULAR VOLUME 90 fL (80-99); MEAN PLATELET VOLUME 11.8 fL (9.0-12.2); MONOCYTES # (AUTO) 0.7 10^3/uL (0.0-1.0); MONOCYTES % (AUTO) 5 % (0-12); NEUTROPHILS # (AUTO) 12.9 10^3/uL (1.8-7.8); NEUTROPHILS % (AUTO) 89 % (42-75); PLATELET COUNT 46 10^3/uL (130-400); WHITE BLOOD COUNT 14.5 10^3/uL (4.3-11.0)
[2023-01-01 07:10] LABS: ALBUMIN 2.2 GM/DL (3.2-4.5); POTASSIUM 4.5 MMOL/L (3.6-5.0)
--- NOTE | 2023-01-01 07:10 | Postpartum Progress Note ---
Note Note Day # 1 Subjective: Patient is verbally expressing she feels much better this am. Still in bed with nogueira. Tolerating a clear diet without nausea or vomiting. Light lochia. Pain is well controlled with DEPLOYMENT TECHNICIAN/Dilaudid. MgSO4 running overnight, improvement in dieresis per RN. Objective: Physical Exam: General - Alert and oriented, no apparent distress Abdomen - Soft, appropriately tender to palpation, non-distended, fundus firm at umbilicus Extremities - +1 edema, negative Jonna's bilaterally, +1-2 clonus(improved from last night +3-4) Incision- c/d/i- no bleeding noted actively from wound, nor vaginally with gentle fundal massage Assessment: POD 1 PLTCS Severe Preeclampsia HELLP syndrome- w/severe Thrombocytopenia, elevated Liver enzymes Acute blood loss anemia Plan: Continue MgSO4 for now Repeat labs(CMP/Coags pending) Will consider plt transfusions Stat CT ordered to R/O internal hemorrhage Will consider dc/Mag and conversion to orals once stabilized Vitals - Labs Vital Signs - I&O Vital Signs Date Time Temp Pulse Resp B/P (MAP) Pulse Ox O2 Delivery O2 Flow Rate FiO2 01/01/23 06:00 87 18 114/80 (91) 01/01/23 06:00 18 01/01/23 06:00 87 18 114/80 (91) 97 Room Air 01/01/23 05:00 95 18 109/94 (99) 95 Room Air 01/01/23 05:00 95 18 109/94 (99) 01/01/23 04:00 105 20 109/66 (80) 96 Room Air 01/01/23 04:00 105 20 109/66 (80) 01/01/23 03:00 107 18 112/64 (80) 01/01/23 03:00 36.4 107 18 112/64 (80) 95 Room Air 01/01/23 02:00 99 22 109/64 (79) 95 Room Air 01/01/23 02:00 99 22 109/64 (79) 01/01/23 01:00 102 24 125/72 (89) 95 Room Air 01/01/23 01:00 102 24 125/72 (89) 01/01/23 00:00 101 28 122/82 (95) 01/01/23 00:00 101 18 122/82 (95) 96 Room Air 12/31/22 23:30 107 18 129/88 (102) 12/31/22 23:00 107 18 129/88 (102) 97 Room Air 12/31/22 22:30 98 20 139/95 (110) 12/31/22 22:30 103 20 139/95 (110) 98 Room Air 12/31/22 22:00 97 146/93 (110) 98 Room Air 12/31/22 21:30 98 28 140/97 (111) 12/31/22 21:30 37.8 102 28 140/97 (111) 98 Room Air 12/31/22 21:20 89 22 134/85 (101) 99 Room Air 12/31/22 21:20 98 134/85 (101) 12/31/22 21:01 Room Air 12/31/22 20:47 38.0 99 38 134/87 (103) Room Air 12/31/22 20:47 99 38 134/87 (103) 12/31/22 20:00 111 149/97 (114) Room Air 12/31/22 19:45 99 60 155/94 (114) 98 Room Air 12/31/22 19:45 99 60 155/94 (114) 12/31/22 19:10 90 16 135/74 (94) 97 Room Air 12/31/22 19:10 97 16 135/74 (94) 12/31/22 19:00 16 12/31/22 19:00 98 Room Air 12/31/22 19:00 97 Room Air 12/31/22 18:15 98 Room Air 12/31/22 18:15 98 Room Air 12/31/22 18:10 98 16 134/87 (103) 12/31/22 18:10 37.1 95 16 134/87 (103) 98 Room Air 12/31/22 17:30 97 Room Air 12/31/22 17:30 97 Room Air 12/31/22 17:29 16 12/31/22 17:10 98 16 136/92 (107) 97 Room Air 12/31/22 17:10 97 16 136/92 (107) 12/31/22 16:10 99 16 131/94 (106) 95 Room Air 12/31/22 15:30 Room Air 12/31/22 15:10 90 16 125/83 (97) 95 Room Air 12/31/22 14:10 116 16 134/98 (110) 96 Room Air 12/31/22 13:10 108 16 138/89 (105) 95 Room Air 12/31/22 12:54 36.3 18 12/31/22 12:24 36.1 18 12/31/22 12:10 103 16 143/96 (112) 95 Room Air 12/31/22 11:10 84 16 149/94 (112) 97 Room Air 12/31/22 10:00 83 16 137/95 (109) 97 Room Air 12/31/22 09:30 Room Air 0 12/31/22 09:30 36.3 18 135/98 (110) 98 Room Air 12/31/22 09:15 Room Air 0 12/31/22 09:15 36.2 147/103 (118) 96 Room Air 12/31/22 09:15 36.2 16 147/103 (118) 96 Room Air 0 12/31/22 09:00 Room Air 0 12/31/22 09:00 36.2 141/97 (112) 95 Room Air 12/31/22 09:00 36.2 18 141/97 (112) 95 Room Air 0 12/31/22 08:45 Room Air 0 12/31/22 08:45 36.3 18 122/96 (105) 98 Room Air 0 12/31/22 08:45 36.3 122/96 (105) 98 Room Air 12/31/22 08:30 Room Air 0 12/31/22 08:30 36.3 127/94 (105) 96 Room Air I & O 01/01/23 07:00 Intake Total 4800 ml Output Total 2665 ml Balance 2135 ml Labs Laboratory Tests 12/31/22 08:35: White Blood Count 11.6H, Red Blood Count 3.55L, Hemoglobin 10.9L, Hematocrit 32L , Mean Corpuscular Volume 89, Mean Corpuscular Hemoglobin 31, Mean Corpuscular Hemoglobin Concent 35, Red Cell Distribution Width 15.2H, Platelet Count 64L, Mean Platelet Volume 11.7, Immature Granulocyte % (Auto) 1, Neutrophils (%) (Auto) 88H, Lymphocytes (%) (Auto) 5L, Monocytes (%) (Auto) 5, Eosinophils (%) (Auto) 1, Basophils (%) (Auto) 0, Neutrophils # (Auto) 10.3H, Lymphocytes # (Auto) 0.5L, Monocytes # (Auto) 0.6, Eosinophils # (Auto) 0.1, Basophils # (Auto) 0.0, Immature Granulocyte # (Auto) 0.1, Percent Immature Platelet Fraction 10.6H, Sodium Level 134L, Potassium Level 3.5L, Chloride Level 108H, Carbon Dioxide Level 20L, Anion Gap 6, Blood Urea Nitrogen 8, Creatinine 0.57L, Estimat Glomerular Filtration Rate 130, BUN/Creatinine Ratio 14, Glucose Level 126H, Calcium Level 7.1L, Corrected Calcium 8.3L, Total Bilirubin 0.5, Aspartate Amino Transf (AST/SGOT) 122H, Alanine Aminotransferase (ALT/SGPT) 100H, Alkaline Phosphatase 104, Total Protein 4.7L, Albumin 2.5L 12/31/22 11:58: White Blood Count 18.2H, Red Blood Count 3.53L, Hemoglobin 10.9L, Hematocrit 31L , Mean Corpuscular Volume 89, Mean Corpuscular Hemoglobin 31, Mean Corpuscular Hemoglobin Concent 35, Red Cell Distribution Width 15.4H, Platelet Count 80L, Mean Platelet Volume 12.2, Immature Granulocyte % (Auto) 1, Neutrophils (%) (Auto) 94H, Lymphocytes (%) (Auto) 2L, Monocytes (%) (Auto) 3, Eosinophils (%) (Auto) 0, Basophils (%) (Auto) 0, Neutrophils # (Auto) 17.1H, Lymphocytes # (Auto) 0.4L, Monocytes # (Auto) 0.6, Eosinophils # (Auto) 0.0, Basophils # (Auto) 0.0, Immature Granulocyte # (Auto) 0.1, Percent Immature Platelet Fraction 10.8H, Sodium Level 132L, Potassium Level 4.2, Chloride Level 107, Carbon Dioxide Level 19L, Anion Gap 6, Blood Urea Nitrogen 9, Creatinine 0.57L, Estimat Glomerular Filtration Rate 130, BUN/Creatinine Ratio 16, Glucose Level 119H, Calcium Level 7.0L, Corrected Calcium 8.2L, Total Bilirubin 1.0, Aspartate Amino Transf (AST/SGOT) 108H, Alanine Aminotransferase (ALT/SGPT) 99H, Alkaline Phosphatase 103, Total Protein 4.7L, Albumin 2.5L, Neutrophils % (Manual) 93, Lymphocytes % (Manual) 3, Monocytes % (Manual) 2, Band Neutrophils 2, Anisocytosis SLIGHT, Prothrombin Time 14.3, INR Comment 1.1, Activated Partial Thromboplast Time 31, Fibrinogen 338, D-Dimer 6.93H, Uric Acid 4.5 12/31/22 20:21: White Blood Count 13.5H, Red Blood Count 3.14L, Hemoglobin 9.8L, Hematocrit 28L, Mean Corpuscular Volume 90, Mean Corpuscular Hemoglobin 31, Mean Corpuscular Hemoglobin Concent 35, Red Cell Distribution Width 15.7H, Platelet Count 68L, Mean Platelet Volume 11.9, Immature Granulocyte % (Auto) 1, Neutrophils (%) (Auto) 90H, Lymphocytes (%) (Auto) 5L, Monocytes (%) (Auto) 5, Eosinophils (%) (Auto) 0, Basophils (%) (Auto) 0, Neutrophils # (Auto) 12.1H, Lymphocytes # (Auto) 0.6L, Monocytes # (Auto) 0.6, Eosinophils # (Auto) 0.0, Basophils # (Auto) 0.0, Immature Granulocyte # (Auto) 0.1, Percent Immature Platelet Fraction 11.4H, Sodium Level 134L, Potassium Level 4.3, Chloride Level 107, Carbon Dioxide Level 19L, Anion Gap 8, Blood Urea Nitrogen 6L, Creatinine 0.60, Estimat Glomerular Filtration Rate 128, BUN/Creatinine Ratio 10, Glucose Level 142H, Calcium Level 7.2L, Corrected Calcium 8.5, Total Bilirubin 0.7, Aspartate Amino Transf (AST/SGOT) 213H, Alanine Aminotransferase (ALT/SGPT) 159H, Alkaline Phosphatase 89, Total Protein 4.5L, Albumin 2.4L, Magnesium Level 4.6H 01/01/23 05:22: White Blood Count 14.5H, Red Blood Count 2.59L, Hemoglobin 8.0L, Hematocrit 23L, Mean Corpuscular Volume 90, Mean Corpuscular Hemoglobin 31, Mean Corpuscular Hemoglobin Concent 35, Red Cell Distribution Width 15.9H, Platelet Count 46L, Mean Platelet Volume 11.8, Immature Granulocyte % (Auto) 1, Neutrophils (%) (Auto) 89H, Lymphocytes (%) (Auto) 5L, Monocytes (%) (Auto) 5, Eosinophils (%) (Auto) 0, Basophils (%) (Auto) 0, Neutrophils # (Auto) 12.9H, Lymphocytes # (Au to) 0.7L, Monocytes # (Auto) 0.7, Eosinophils # (Auto) 0.0, Basophils # (Auto) 0.0, Immature Granulocyte # (Auto) 0.1, Percent Immature Platelet Fraction 9.5H TEVIN DOMINGUEZ DO Jan 01, 2023 07:10
[2023-01-01 07:11] LABS: CALCIUM 6.8 MG/DL (8.5-10.1)
[2023-01-01 07:12] LABS: TOTAL PROTEIN 4.1 GM/DL (6.4-8.2)
[2023-01-01 07:12] LABS: INR 1.1 (0.8-1.4); PROTHROMBIN TIME PATIENT 14.2 SEC (12.2-14.7)
[2023-01-01 07:15] LABS: FIBRIN DEGRADATION PRODUCTS 3.97 UG/ML (0.00-0.49)
[2023-01-01 07:16] LABS: CREATININE SERUM 0.6 MG/DL (0.60-1.30)
[2023-01-01] MEDS: NS IV 500 ML 500 ML IV SCH (08:29)
[2023-01-01] MEDS: D5 LR 1,000 ML IV SOLN 1,000 ML IV SCH ×2 (08:29→23:49)
[2023-01-01] MEDS: DOCUSATE SODIUM 100 MG CAPSULE PO SCH (08:29)
[2023-01-01] MEDS: CATHETER FLUSH 10 ML SYR IV SCH ×3 (08:32→22:00)
[2023-01-01] MEDS: dexAMETHasone INJ 10 MG/ML 1 ML VIAL IM SCH ×2 (08:32→21:01)
--- NOTE | 2023-01-01 08:38 | Diagnostic Imaging Report ---
EXAMINATION: CT abdomen and pelvis without contrast. TECHNIQUE: Multiple contiguous axial images were obtained through the abdomen and pelvis without the use of intravenous contrast. All CT scans use one or more of the following dose optimizing techniques: automated exposure control, MA and/or KvP adjustment based on patient size and exam type or iterative reconstruction. HISTORY: Decrease in hemoglobin after section. COMPARISON: None available. FINDINGS: Limited views of the lower thorax show small pleural effusions and overlying atelectasis. The liver is normal without focal lesion. There is no biliary ductal dilation. Gallbladder is normal. Pancreas is normal. Spleen is normal. Adrenal glands are normal. The kidneys are normal. There is no hydronephrosis. Bladder is decompressed by Cohen catheter. There is a post gravid uterus with surgical changes from recent section. There is a large blood clot in the lower uterine segment near the cervix measuring 8.7 x 6.3 x 5.1 cm. There is blood filling the vaginal canal. There is free fluid in the abdomen but no hemoperitoneum. There are blood products and gas in the endometrial canal. Bowel is normal in caliber without obstruction or inflammation. There is a small amount of free fluid and free air from recent surgery. There is gas in the right paraspinal musculature likely from epidural placement. No abdominal or pelvic lymphadenopathy. Aorta is normal in caliber without aneurysm. There are no suspicious osseus lesions. IMPRESSION: 1. Post gravid uterus with large blood clot in the lower uterine segment and cervix and blood filling the vaginal canal. 2. Free fluid and air in the abdomen from recent surgery but no hemoperitoneum. Dictated by: Dictated on workstation # [id number]
[2023-01-01] MEDS ORDERED: NS IV 500 ML 500 ML IV SCH ×2 (09:15)
[2023-01-01] MEDS: diphenhydrAMINE INJ 50 MG/ML VIAL IV SCH ×2 (10:31→21:53)
[2023-01-01] MEDS: MAGNESIUM SULFATE DRIP 500 ML IV SCH (11:13)
--- NOTE | 2023-01-01 13:09 | Anesthesia-Regional Post-Op ---
Regional Patient Condition Mental Status: Alert, Oriented x3 Circulation: Same as Pre-Op Headache: Absent Sensation: Full Recovery Motor Block: Absent Post Op Complications Complications Thrombocytopenia Anesthesia/Patient Condition Patient is doing fair, no complaints, stable vital signs. I discussed the need to leave her epidural catheter in place until her platelet count has increased to >90. She is currently receiving platelets, FFP, and PBRC. Labs will be drawn four hours after the infusions and we will monitor to decide on the best time to pull the epidural catheter. The patient states she feels fine. She is able to move her lower extremities with good flexion and extension. She denies any back pain, any headache or any pain in her legs. We will continue to monitor. ISAIAS MARES CRNA Jan 01, 2023 13:09
[2023-01-01] MEDS: METOCLOPRAMIDE INJ 10 MG/2 ML IVP SCH ×2 (14:28→20:58)
[2023-01-01 18:01] LABS: MONOCYTES % (AUTO) 6 % (0-12)
[2023-01-01 18:03] LABS: BASOPHILS % (AUTO) 0 % (0-10); EOSINOPHILS % (AUTO) 0 % (0-10); HEMATOCRIT 22 % (35-52); HEMOGLOBIN 7.3 g/dL (11.5-16.0); LYMPHOCYTES # (AUTO) 1.2 10^3/uL (1.0-4.0); LYMPHOCYTES % (AUTO) 9 % (12-44); MEAN CORPUSCULAR HEMOGLOBIN 30 pg (25-34); MEAN CORPUSCULAR HGB CONC 33 g/dL (32-36); MEAN CORPUSCULAR VOLUME 92 fL (80-99); MEAN PLATELET VOLUME 10.9 fL (9.0-12.2); MONOCYTES # (AUTO) 0.8 10^3/uL (0.0-1.0); NEUTROPHILS # (AUTO) 11.1 10^3/uL (1.8-7.8); NEUTROPHILS % (AUTO) 83 % (42-75); PLATELET COUNT 67 10^3/uL (130-400); WHITE BLOOD COUNT 13.3 10^3/uL (4.3-11.0)
[2023-01-01 18:17] LABS: ALBUMIN 2.4 GM/DL (3.2-4.5)
[2023-01-01 18:18] LABS: POTASSIUM 4.1 MMOL/L (3.6-5.0)
[2023-01-01 18:19] LABS: CALCIUM 7.1 MG/DL (8.5-10.1)
[2023-01-01 18:20] LABS: TOTAL PROTEIN 4.6 GM/DL (6.4-8.2)
[2023-01-01 18:22] LABS: BILIRUBIN,TOTAL 0.6 MG/DL (0.1-1.0)
[2023-01-01 18:24] LABS: CREATININE SERUM 0.61 MG/DL (0.60-1.30)
[2023-01-01] MEDS: SIMETHICONE 80 MG CHEWABLE TABLET PO SCH (23:48)
[2023-01-02] VITALS (13 sets, daily range): BP systolic 109–134; BP diastolic 67–92
[2023-01-02] MEDS: NS IV 500 ML 500 ML IV SCH (00:40)
[2023-01-02] MEDS: METOCLOPRAMIDE INJ 10 MG/2 ML IVP SCH ×2 (05:55→06:19)
[2023-01-02] MEDS: CATHETER FLUSH 10 ML SYR IV SCH (06:00)
[2023-01-02 06:05] LABS: BASOPHILS % (AUTO) 0 % (0-10); HEMATOCRIT 27 % (35-52); HEMOGLOBIN 9.3 g/dL (11.5-16.0); MEAN CORPUSCULAR HEMOGLOBIN 30 pg (25-34); MEAN CORPUSCULAR HGB CONC 34 g/dL (32-36); MEAN CORPUSCULAR VOLUME 89 fL (80-99)
[2023-01-02 06:07] LABS: EOSINOPHILS % (AUTO) 0 % (0-10); LYMPHOCYTES # (AUTO) 1.1 10^3/uL (1.0-4.0); LYMPHOCYTES % (AUTO) 8 % (12-44); MEAN PLATELET VOLUME 11.7 fL (9.0-12.2); MONOCYTES # (AUTO) 0.7 10^3/uL (0.0-1.0); MONOCYTES % (AUTO) 5 % (0-12); NEUTROPHILS # (AUTO) 10.9 10^3/uL (1.8-7.8); NEUTROPHILS % (AUTO) 84 % (42-75); PLATELET COUNT 74 10^3/uL (130-400); WHITE BLOOD COUNT 13.1 10^3/uL (4.3-11.0)
[2023-01-02 06:14] LABS: ALBUMIN 2.4 GM/DL (3.2-4.5); POTASSIUM 4.1 MMOL/L (3.6-5.0)
[2023-01-02 06:15] LABS: CALCIUM 7.4 MG/DL (8.5-10.1)
[2023-01-02 06:17] LABS: TOTAL PROTEIN 4.5 GM/DL (6.4-8.2)
[2023-01-02 06:19] LABS: BILIRUBIN,TOTAL 0.7 MG/DL (0.1-1.0)
[2023-01-02 06:20] LABS: CREATININE SERUM 0.54 MG/DL (0.60-1.30)
--- NOTE | 2023-01-02 06:54 | Postpartum Progress Note ---
Note Note Day # [] Subjective: Patient is without complaints. Ambulating, voiding. Tolerating a regular diet without nausea or vomiting. Normal lochia. Pain is well controlled with CAREER RESOURCE SPECIALIST pump. Objective: Physical Exam: General - Alert and oriented, no apparent distress Abdomen - Soft, appropriately tender to palpation, non-distended, fundus firm at umbilicus Extremities - no edema, negative Jonna's bilaterally Assessment: POD 2 PLTCS s/p 1 unit Platelets, and 2 uPRBC Acute blood loss anemia HELLP syndrome- Liver enzymes recovering, platelets stable and increasing Thrombocytopenia Plan: Routine care today Will convert to oral pain meds Encourage breast feeding. Encourage ambulation. Ferrous sulfate supplementation. Plan for discharge tomorrow if remains stable today Vitals - Labs Vital Signs - I&O Vital Signs Date Time Temp Pulse Resp B/P (MAP) Pulse Ox O2 Delivery O2 Flow Rate FiO2 01/02/23 06:29 18 01/02/23 06:22 36.8 67 18 122/74 (90) 95 Room Air 01/02/23 03:25 36.8 87 18 120/73 (89) 95 Room Air 01/02/23 03:00 82 18 118/71 (87) 95 Room Air 01/02/23 02:30 68 18 125/81 (96) 96 Room Air 01/02/23 02:00 36.8 88 18 109/67 96 Room Air 01/02/23 01:00 36.8 98 18 124/88 96 Room Air 01/02/23 00:50 36.6 98 18 124/88 96 Room Air 01/02/23 00:20 36.8 93 18 124/73 94 Room Air 01/01/23 23:50 37.0 89 18 126/84 93 Room Air 01/01/23 23:35 37.0 92 18 125/80 94 Room Air 01/01/23 23:00 36.6 90 18 125/77 94 Room Air 01/01/23 22:30 36.6 97 18 113/72 95 Room Air 01/01/23 22:00 37.0 104 18 120/75 93 Room Air 01/01/23 21:30 37.1 107 18 107/65 95 Room Air 01/01/23 21:00 36.8 102 18 125/80 94 Room Air 01/01/23 20:45 36.9 86 18 128/74 97 Room Air 01/01/23 20:30 36.4 95 132/84 97 Room Air 01/01/23 20:15 36.8 102 18 134/86 98 Room Air 01/01/23 18:58 36.9 96 18 134/79 (97) 96 Room Air 01/01/23 18:20 18 01/01/23 18:00 37.0 102 18 132/82 (99) 93 Room Air 01/01/23 17:00 37.0 99 18 124/68 (86) 93 Room Air 01/01/23 16:00 82 16 118/74 (89) 95 Room Air 01/01/23 15:00 36.7 87 18 118/72 95 Room Air 01/01/23 15:00 36.7 87 16 118/72 (87) 95 Room Air 01/01/23 14:30 36.8 97 18 128/75 96 Room Air 01/01/23 14:16 36.7 94 18 129/77 95 Room Air 01/01/23 14:00 36.4 91 18 144/79 95 Room Air 01/01/23 14:00 36.7 91 16 144/79 (100) 95 Room Air 01/01/23 13:19 81 16 139/73 (95) 94 Room Air 01/01/23 13:00 82 16 128/69 (88) 94 Room Air 01/01/23 12:23 36.8 81 20 129/73 94 Room Air 01/01/23 12:00 91 16 125/81 (96) 94 Room Air 01/01/23 11:17 36.9 90 20 125/81 96 Room Air 01/01/23 11:00 36.9 87 16 126/67 (86) 94 Room Air 01/01/23 10:58 36.9 89 18 126/67 95 Room Air 01/01/23 10:00 86 16 124/60 (81) 96 Room Air 01/01/23 09:00 91 18 124/70 (88) 97 Room Air 01/01/23 08:00 84 18 112/73 (86) 01/01/23 08:00 36.7 84 18 112/73 (86) 97 Room Air 01/01/23 07:15 18 01/01/23 07:15 20 01/01/23 07:15 96 Room Air 0.00 01/01/23 07:00 82 18 125/85 (98) 01/01/23 07:00 82 18 125/85 (98) 97 Room Air I & O 01/02/23 06:59 Intake Total 3035 ml Output Total 3725 ml Balance -690 ml Labs Laboratory Tests 01/01/23 17:59: White Blood Count 13.3H, Red Blood Count 2.40L, Hemoglobin 7.3L, Hematocrit 22L, Mean Corpuscular Volume 92, Mean Corpuscular Hemoglobin 30, Mean Corpuscular Hemoglobin Concent 33, Red Cell Distribution Width 16.4H, Platelet Count 67L, Mean Platelet Volume 10.9, Immature Granulocyte % (Auto) 2, Neutrophils (%) (A uto) 83H, Lymphocytes (%) (Auto) 9L, Monocytes (%) (Auto) 6, Eosinophils (%) (Auto) 0, Basophils (%) (Auto) 0, Neutrophils # (Auto) 11.1H, Lymphocytes # (Auto) 1.2, Monocytes # (Auto) 0.8, Eosinophils # (Auto) 0.0, Basophils # (Auto) 0.0, Immature Granulocyte # (Auto) 0.2H, Percent Immature Platelet Fraction 8.9H, Sodium Level 137, Potassium Level 4.1, Chloride Level 107, Carbon Dioxide Level 25, Anion Gap 5, Blood Urea Nitrogen 7, Creatinine 0.61, Estimat Glomerular Filtration Rate 128, BUN/Creatinine Ratio 11, Glucose Level 133H, Calcium Level 7.1L, Corrected Calcium 8.4L, Total Bilirubin 0.6, Aspartate Amino Transf (AST/SGOT) 120H, Alanine Aminotransferase (ALT/SGPT) 179H, Alkaline Maggie sphatase 82, Total Protein 4.6L, Albumin 2.4L 01/02/23 05:25: White Blood Count 13.1H, Red Blood Count 3.06L, Hemoglobin 9.3#L, Hematocrit 27L , Mean Corpuscular Volume 89, Mean Corpuscular Hemoglobin 30, Mean Corpuscular Hemoglobin Concent 34, Red Cell Distribution Width 15.6H, Platelet Count 74L, Mean Platelet Volume 11.7, Immature Granulocyte % (Auto) 3, Neutrophils (%) (Auto) 84H, Lymphocytes (%) (Auto) 8L, Monocytes (%) (Auto) 5, Eosinophils (%) (Auto) 0, Basophils (%) (Auto) 0, Neutrophils # (Auto) 10.9H, Lymphocytes # (Auto) 1.1, Monocytes # (Auto) 0.7, Eosinophils # (Auto) 0.0, Basophils # (Auto) 0.0, Immature Granulocyte # (Auto) 0.3H, Percent Immature Platelet Fraction 8.9H, Sodium Level 137, Potassium Level 4.1, Chloride Level 107, Carbon Dioxide Level 24, Anion Gap 6, Blood Urea Nitrogen 11, Creatinine 0.54L, Estimat Glomerular Filtration Rate 132, BUN/Creatinine Ratio 20, Glucose Level 91, Calcium Level 7.4L, Corrected Calcium 8.7, Total Bilirubin 0.7, Aspartate Amino Transf (AST/SGOT) 54H, Alanine Aminotransferase (ALT/SGPT) 128H, Alkaline Ph osphatase 80, Total Protein 4.5L, Albumin 2.4L TEVIN DOMINGUEZ DO Jan 02, 2023 06:54
[2023-01-02] MEDS: SIMETHICONE 80 MG CHEWABLE TABLET PO SCH ×3 (08:17→19:32)
[2023-01-02] MEDS: IBUPROFEN 600 MG TABLET PO PRN ×3 (08:17→23:33)
[2023-01-02] MEDS: HYDROcodone/ACETAMINOPHEN 5 MG/325 MG TABLET PO PRN ×2 (08:18→14:31)
[2023-01-03 03:42] VITALS: BP 120/79
[2023-01-03] MEDS: IBUPROFEN 600 MG TABLET PO PRN (05:43)
[2023-01-03 05:54] LABS: BASOPHILS % (AUTO) 1 % (0-10); EOSINOPHILS # (AUTO) 0.3 10^3/uL (0.0-0.3); EOSINOPHILS % (AUTO) 4 % (0-10); HEMATOCRIT 27 % (35-52); HEMOGLOBIN 9.2 g/dL (11.5-16.0); LYMPHOCYTES # (AUTO) 1.7 10^3/uL (1.0-4.0); LYMPHOCYTES % (AUTO) 20 % (12-44); MEAN CORPUSCULAR HEMOGLOBIN 31 pg (25-34); MEAN CORPUSCULAR HGB CONC 35 g/dL (32-36); MEAN CORPUSCULAR VOLUME 90 fL (80-99); MEAN PLATELET VOLUME 11.4 fL (9.0-12.2); MONOCYTES # (AUTO) 0.6 10^3/uL (0.0-1.0); MONOCYTES % (AUTO) 7 % (0-12); NEUTROPHILS # (AUTO) 5.5 10^3/uL (1.8-7.8); NEUTROPHILS % (AUTO) 67 % (42-75); PLATELET COUNT 76 10^3/uL (130-400); WHITE BLOOD COUNT 8.3 10^3/uL (4.3-11.0)
[2023-01-03 06:08] LABS: ALBUMIN 2.4 GM/DL (3.2-4.5); POTASSIUM 4.1 MMOL/L (3.6-5.0)
[2023-01-03 06:09] LABS: CALCIUM 7.6 MG/DL (8.5-10.1)
[2023-01-03 06:11] LABS: TOTAL PROTEIN 4.5 GM/DL (6.4-8.2)
[2023-01-03 06:13] LABS: BILIRUBIN,TOTAL 0.6 MG/DL (0.1-1.0)
[2023-01-03 06:14] LABS: CREATININE SERUM 0.53 MG/DL (0.60-1.30)
--- NOTE | 2023-01-03 08:05 | Postpartum Progress Note ---
Note Note Day # 3 Subjective: Patient is without complaints. Ambulating, voiding. Tolerating a regular diet without nausea or vomiting. Normal lochia. Pain is well controlled with oral pain medications. 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 Encourage breast feeding. Encourage ambulation. Ferrous sulfate supplementation. Plan for discharge this afternoon Vitals - Labs Vital Signs - I&O Vital Signs Date Time Temp Pulse Resp B/P (MAP) Pulse Ox O2 Delivery O2 Flow Rate FiO2 01/03/23 03:42 36.6 73 20 120/79 (93) 97 Room Air 01/02/23 23:30 36.4 70 18 121/72 (88) 99 Room Air 01/02/23 19:00 74 18 133/85 (101) 98 Room Air 01/02/23 18:20 36.5 86 18 134/92 (106) 99 Room Air 01/02/23 13:29 35.8 78 18 128/85 (99) 99 Room Air 01/02/23 08:18 18 01/02/23 08:18 36.4 78 18 128/82 (97) 99 Room Air I & O 01/03/23 07:00 Intake Total 600 ml Output Total 1250 ml Balance -650 ml Labs Laboratory Tests 01/03/23 05:23: White Blood Count 8.3, Red Blood Count 2.97L, Hemoglobin 9.2L, Hematocrit 27L, M dayo Corpuscular Volume 90, Mean Corpuscular Hemoglobin 31, Mean Corpuscular Hemoglobin Concent 35, Red Cell Distribution Width 16.1H, Platelet Count 76L, Mean Platelet Volume 11.4, Immature Granulocyte % (Auto) 2, Neutrophils (%) (Auto) 67, Lymphocytes (%) (Auto) 20, Monocytes (%) (Auto) 7, Eosinophils (%) (Auto) 4, Basophils (%) (Auto) 1, Neutrophils # (Auto) 5.5, Lymphocytes # (Auto) 1.7, Monocytes # (Auto) 0.6, Eosinophils # (Auto) 0.3, Basophils # (Auto) 0.0, Immature Granulocyte # (Auto) 0.2H, Sodium Level 138, Potassium Level 4.1, Chloride Level 109H, Carbon Dioxide Level 23, Anion Gap 6, Blood Urea Nitrogen 13, Creatinine 0.53L, Estimat Glomerular Filtration Rate 132, BUN/Creatinine Ratio 25, Glucose Level 74, Calcium Level 7.6L, Corrected Calcium 8.9, Total Bilirubin 0.6, Aspartate Amino Transf (AST/SGOT) 21, Alanine Aminotransferase (ALT/SGPT) 76H, Alkaline Phosphatase 76, Total Protein 4.5L, Albumin 2.4L TEVIN DOMINGUEZ DO Jan 03, 2023 08:04
--- NOTE | 2023-01-03 08:06 | Discharge Inst-Women's Service ---
Discharge Inst-Women's Serv Depart Medication/Instructions New, Converted or Re-Newed RX: Transmitted to Pharmacy Problems Reviewed?: Yes Consults/Follow Up Additional Follow Up: Yes Orders/Referrals Dr. Johnson in 7-10 days( Repeat CBC tomorrow in office), Dr. Johnson in 6 weeks Activity Activity: Activity as Tolerated Driving Instructions: No Driving for 1 Week NO SMOKING: NO SMOKING Nothing Inside Vagina: No Douching, No [place], No Tampons Diet Discharge Diet: No Restrictions Symptoms to Report to : Bleeding Excessive, Pain Increased, Fever Over 101 Degrees F, Vaginal Bleeding Increase, Questions/Concerns For Any Problems or Questions: Contact Your Physician Skin/Wound Care Infection Signs and Symptoms: Increased Redness, Foul Odor of Wound, Increased Drainage, Skin Itchy or Has a Rash, Increased Swelling, Temperature Above 101 F Operative Area Clean and Dry: Keep Incision Clean/Dry Stitches/[place]/Dermabond: Dermabond, Care of Stitches Bathing Instructions: TEVIN Thapa DO Jan 03, 2023 08:06
[2023-01-03] MEDS ORDERED: DOCU100C37 PO (08:08)
[2023-01-03] MEDS ORDERED: SIME80TA16 PO (08:08)
[2023-01-03] MEDS ORDERED: IBUP-844 PO (08:08)
[2023-01-03] MEDS ORDERED: ACHD5005 PO (08:08)
[2023-01-03] MEDS ORDERED: FERR-74 PO (08:08)
[2023-01-03 09:56] VITALS: BP 156/83
--- NOTE | 2023-01-03 13:08 | Anesthesia-General Post-Op ---
General Patient Condition Mental Status/LOC: Same as Preop Cardiovascular: Satisfactory Nausea/Vomiting: Absent Respiratory: Satisfactory Pain: Controlled Complications: Absent Post Op Complications Complications None Follow Up Care/Instructions Patient Instructions None needed. Anesthesia/Patient Condition Patient Condition Patient is doing well and ready for discharge to home. Her platelet count was up to 76 from 74 yesterday. I discussed with her need to remove her epidural catheter even though her platelet count was lower than we would prefer. She understood. When I went to remove catheter, it had already self-D/C'd. She is being discharged to home this morning with follow-up with Dr Johnson tomorrow to recheck labs. I discussed with her and her in detail the symptoms of an epidural hematoma. She is to return immediately to the ER for an evaluation if she has any decreased sensation, motor function or sudden onset of severe back or leg pain. She understood and will call us with any questions. She has no complaints, stable vital signs, no apparent adverse anesthesia problems. SUZANNE CUMMINS DO Jan 03, 2023 13:08
== END 2023-01-03 10:40 | disposition home or self-care (01) | DRG 787 ==
LOC: WSo 20:16 → LDRP 20:17 → WSo 21:57 → LDRP 21:57
PROVIDERS: ADMIT Obstetrics & Gynecology; ATTEND Obstetrics & Gynecology
PROC: 10D00Z1 Extraction of Products of Conception, Low, Open Approach (ICD-10-PCS; principal; 2022-12-30)
DX: O14.24 HELLP syndrome, complicating childbirth (principal); D62 Acute posthemorrhagic anemia; Z3A.37 37 weeks gestation of pregnancy; Z37.0 Single live birth; O90.81 Anemia of the puerperium
CPT/HCPCS: 36415; 74176; 80053; 81000; 83735; 84550; 85007; 85025; 85027; 85379; 85384; 85610; 85730; 86780; 86850; 86900; 86901; 86920; 94664; 99212